=== PATIENT | male | born 1985 | race Caucasian/White ===

== ENCOUNTER → 2023-12-16 09:00 | Outpatient (BNV) | payer OTHER, SELFPAY | PROVIDERS: Visit Provider Psychiatry & Neurology Psychiatry | DX: F41.1 Generalized anxiety disorder (principal); F90.0 Attention-deficit hyperactivity disorder, predominantly inattentive type; F32.A Depression, unspecified; F12.90 Cannabis use, unspecified, uncomplicated; R41.840 Attention and concentration deficit | CPT/HCPCS: 90792; 99213 ==

== ENCOUNTER → 2023-12-18 14:44 | Outpatient (REF) | payer OTHER, SELFPAY ==
--- NOTE | 2023-12-18 14:50 | ECG_ITS ---
Test Reason : qtc check Blood Pressure : / mmHG Vent. Rate : 051 BPM Atrial Rate : 051 BPM P-R Int : 138 ms QRS Dur : 096 ms QT Int : 422 ms P-R-T Axes : 064 081 049 degrees QTc Int : 388 ms Sinus bradycardia Otherwise normal ECG No previous ECGs available Referred By: Kristie Stanton Electronically Signed By:DEMOND PALOMO MD
== END ==
LOC: HO.CARD 14:44
PROVIDERS: Visit Provider Psychiatry & Neurology Psychiatry
DX: F39 Unspecified mood [affective] disorder (principal)
CPT/HCPCS: 93005

== ENCOUNTER → 2023-12-18 14:50 | Outpatient (BNV) | payer OTHER, SELFPAY | PROVIDERS: Visit Provider Internal Medicine Cardiovascular Disease | DX: R00.1 Bradycardia, unspecified (principal) | CPT/HCPCS: 93010 ==

== ENCOUNTER 2023-12-29 10:00 | Outpatient (RCR) | payer OTHER, SELFPAY ==
[2023-12-16 11:41] VITALS: BP 144/91; PULSE 48; TEMP 36.9; BMI 21.9
--- NOTE | 2023-12-16 14:22 | PC.ADMIT ---
Patient is a 38 year old single male who was referred to [facility] by his psychiatrist Dr. Díaz. According to Dr. Díaz patient struggling with agitated depression with patient reports of significant insomnia, weight loss, irritability, anxiety, restlessness, and profound melancholia over the past several months. Reported severe low self esteem and is constantly comparing self to others. Patient currently on a medical leave from his job in [place]. Recently moved back home and is living with his mother d/t financial difficulties. Reports difficulty affording to live in his [place] apartment. 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 Feels he is stuck in his life and does not know how to move forward. Patient is alert and oriented x4. Calm and cooperative. Presented with depressed mood and irritable affect. Denied SI, no HI. He was given a copy of his safety plan if needed. Medications reconciled with patient and patient's pharmacy along with provider paperwork. Patient reports he is taking medications as prescribed. Patient reports he stopped doing the things he used to enjoy and was a competitive cyclist. Patient stated in college he used to complete with with his friends to see who could get the lowest pulse and would train harder to try to get his pulse the lowest. VS BP 144/91 P 48. He also stated hypertension runs in his family. Dr. Stanton is aware.
--- NOTE | 2023-12-16 23:51 | HO.PS.ADMBH ---
HPI Date of Service: 12/16/23 Chief Complaint: MDD,DAVID,ADHD Sources of Information: patient interviewed, chart reviewed and crisis/core team assessment reviewed HPI Narrative: Patient is a single, employed 38 yo male with history of job loss, difficulty maintaining employment who was referred by his provider who reports patient's struggles with insomnia, weight loss, irritability, restlessness, melancholia, low self esteem. Patient presents with dysphoria, mild irritability, and difficulty articulating his thoughts. It's hard to say and define (the reason he was referred to [facility]). I guess I fell off track . He states he was last doing okay 4 or 5 months ago, but my family would say I've always had issues . He reports a pattern of losing jobs either due to interpersonal clashes with supervisors, difficulties with staying organized or managing systems and other practical aspects keeping up with his job, or just the general discomfort with the malaise of the workplace. 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 He feels the cumulative weight of various perceived failures I see the old version of myself, before all the meds and drugs and says he feels dissatisfied with where his life is now and feels particularly frustrated by disappointment in himself. He relays issues with attention, focus, distractibility, executive dysfunction, organization, decision-making, procrastination, avoidant behaviors and memory deficits. He had been on an IEP/504 in school due to requiring more time on tests, also had OT for penmanship, but denies being aware of any developmental delays or childhood diagnoses for LD or ADHD. He reportedly underwent neuropsychological testing 2 years ago but had trouble conveying the findings from the testing. Prior to that he had been prescribed stimulant medication, but could not recall whether this was helpful but says it caused more anxiety. Says there are things he used to get into, like cooking. Even when he has had difficulties focusing, he would do better with hands on physical types of tasks and sports, biking. Now he says he is too lazy to do those things and says he generally avoids doing things and can be passive aggressive and easily frustrated by his shortcomings or even minimally demanding tasks (especially mental tasks). ..lately it is hard to give a s*%t . He endorses difficulty attending to our conversation, frequently yawning or getting up to get a tissue or throw something away. He notes that caffeine is wearing off and says he has a history of heavy caffeine use, but in recent months has been limiting the amount due to emerging problems with sleep since July or August. I used to sleep like a rock . Past Psychiatric History: Denies IPLOC, PHP, detox admissions Denies suicide attempts or SIBs Denies aggressive behavior Underwent neuropsych eval through [facility] in 2021 Therapist: had a therapist a year ago (from 2021 to early 2022) Psych provider: Nii Díaz MD Previous trials include Ritalin ([id number]), Adderall which he did not tolerate due to increase in anxiety, palpitations. Reports otherwise limited medication history due to resistance to medications or accepting treatment CURRENT MEDICATIONS sertraline 50 mg qd quetiapine 25 mg qhs lorazepam 0.5 mg BID prn anxiety atorvastatin 40 mg qd [facility] Medical History (Updated 12/23/23 @ 08:50 by Kristie Stanton MD) Hydrocele Hyperlipidemia Narrative: h/o HTN HLD s/p surgical repair of hydrocele, varicocele Denies seizures Denies concussions or head injury Family History: Mother was briefly treated on an antidepressant Father has had similar problems with employment, difficulty gaining and maintaining employment Social History: Unmarried, no children Lives at home with mom Substance History: Occasional cannabis use, social alcohol use in moderation nicotine use for a few years, quit 2022 h/o excessive caffeine use, in recent months very little Diagnostics Vital Signs (24Hr): Vital Signs - 24 hr 12/16/23 11:41 Temperature 98.4 F Pulse Rate 48 L Blood Pressure 144/91 H BMI result Body Mass Index 21.9 Meds/Allergies Meds Home Medications ?Medication ?Instructions ?Recorded ?Confirmed ?Type atorvastatin 40 mg tablet 40 mg PO DAILY 12/16/23 12/16/23 History lorazepam 0.5 mg tablet 0.5 mg PO BID PRN Anxiety 12/16/23 12/16/23 History quetiapine 25 mg tablet 25 mg PO BEDTIME 12/16/23 12/16/23 History sertraline 50 mg tablet (Zoloft) 50 mg PO DAILY 12/16/23 12/16/23 History Allergies Allergies Allergy/AdvReac Type Severity Reaction Status Date / Time No Known Allergies Allergy Verified 12/16/23 15:04 Mental Status Exam Mental Status Exam Narrative: Alert, oriented, in no acute distress. Calm, cooperative, semi-engaged, distracted. No psychomotor agitation or neurovegetative retardation. Eye contact maintained. Mood frustrated anxious, depressed, affect variable, irritable edge. Speech normal fragmented. Thought process thought blocking otherwise coherent, logical. Thought content related to stressors, denies any hopelessness or SI. Denies any aggressive ideation or HI. No paranoia or delusional content elicited. No evidence of psychosis. Insight and judgment - fair but adequate. Assessment & Plan Assessment & Plan (1) DAVID (generalized anxiety disorder): Status: Acute Code(s): F41.1 - Generalized anxiety disorder (2) ADHD (attention deficit hyperactivity disorder), inattentive type: Status: Acute Code(s): F90.0 - Attention-deficit hyperactivity disorder, predominantly inattentive type (3) Depressive disorder: Status: Acute Code(s): F32.A - Depression, unspecified (4) Cannabis use disorder: Status: Acute Code(s): F12.90 - Cannabis use, unspecified, uncomplicated Assessment and Plan: r/o cannabis-induced disorder (5) Cognitive attention deficit: Status: Acute Code(s): R41.840 - Attention and concentration deficit Assessment and Plan: r/o expressive language disorder or other cognitive disorder pt denies h/o head injury r/o sleep apnea Plan Admit to [facility] VS reviewed: abrefile, BP 144/91;?48 bpm Lab slip for routine fasting lab work and EKG, routine for AM tomorrow for baseline QTc for medication considerations start lisdexamfetamine 10 mg qam may start guanfacine ER 1 mg qd once EKG, lab work reviewed to target anxiety, mitigate side effects from stimulant If unable to tolerate due to bradycardia, will utilize lorazepam prn will continue other regular medications?for now consider switching to less cognitively blunting medication for sleep UDS as indicated [facility] reviewed Continue to monitor as per protocol Patient educated on: diagnosis, medication risk/benefits and substance abuse Informed Consent: understands Reason for continued partial hosp. stay Substantial Risk for: inability to function and med/psych decompensation Certification I certify that partial hospital treatment is medically necessary due to the symptoms and problems resulting from the patient's mental illness and the failure to treat the patient at the partial hospital level of care would likely result in the patient requiring inpatient psychiatric care which could not be prevented at a less intensive level of care. Time Spent With Patient Time: Total time managing care of this patient today _60___ minutes.
[2023-12-17 09:30] VITALS: BP 125/77; PULSE 51
--- NOTE | 2023-12-18 14:42 | HO.PHP ---
Client's case has been opened and reviewed in team.
--- NOTE | 2023-12-23 09:31 | P.PNPSP_ITS ---
Subjective Subjective Date of Service: 12/22/23 Reason For Visit: MDD,DAVID,ADHD Interim History: Patient seen for follow-up. Not the best. I havent really gotten anywhere. I havent started the meds at all He did receive a notification from [facility] that they are there but having difficulty making decisions in general. He does not have any specific concerns about starting the meds, although shares having spent a lot of time questioning if the medication will help him or not. He says he his anxiety is bad and it continues to be difficult to think or do anything, he is stuck in my head, I just cant figure out what to do. I try decide to do something, but then I just think myself out of it. I just dont know what I'm doing . He relays how difficult it is to process any information including his own thoughts and wishes, and indicates it causes him a lot of anxiety. Finally he adds I just got to do it. I cant keep living like this...getting stuck like this all the time . He did cut back some of his Seroquel and says he is sleeping well and feels less groggy and sedated. Denies his anxiety or mood is any worse. He denies any AH or VH and says he has no hsitory of paranoid or delusional thoughts or beliefs. When asked what he finds himself thinking about, he says he mostly ruminates on just where I'm at and where I havent really gotten to in life, and not having the thinkings I need, job, money, a life... I just get really pissed about it. Frustrated . Denies any SI thoughts or aggressive ideation or HI. Attending Groups: Yes Review of Systems Acute medical concerns: No Mental Status Exam Mental Status Exam Narrative: Alert, oriented, in no acute distress. Calm, cooperative, semi-engaged, dist racted. No psychomotor agitation or neurovegetative retardation. Eye contact maintained. Mood frustrated anxious, depressed, affect variable, irritable edge. Speech normal fragmented. Thought process thought blocking otherwise coherent, logical. Thought content related to stressors, denies any hopelessness or SI. Denies any aggressive ideation or HI. No paranoia or delusional content elicited. No evidence of psychosis. Insight and judgment - fair but adequate. Diagnostics Vital Signs (24Hr): BMI result Body Mass Index 21.9 Assessment & Plan Assessment & Plan (1) DAVID (generalized anxiety disorder): Status: Acute Code(s): F41.1 - Generalized anxiety disorder (2) ADHD (attention deficit hyperactivity disorder), inattentive type: Status: Acute Code(s): F90.0 - Attention-deficit hyperactivity disorder, predominantly inattentive type (3) Depressive disorder: Status: Acute Code(s): F32.A - Depression, unspecified (4) Cannabis use disorder: Status: Acute Code(s): F12.90 - Cannabis use, unspecified, uncomplicated Assessment and Plan: r/o cannabis-induced disorder (5) Cognitive attention deficit: Status: Acute Code(s): R41.840 - Attention and concentration deficit Assessment and Plan: r/o expressive language disorder or other cognitive disorder pt denies h/o head injury r/o sleep apnea Plan patient continues to be reluctant to start medication due to indecisiveness and difficulty internailzing information, negotiating pros/cons start lisdexamfetamine 10 mg qam may start guanfacine ER 1 mg qd once EKG, lab work reviewed to target anxiety, mitigate side effects from stimulant If unable to tolerate guanfacine due to bradycardia, will instead utilize lorazepam prn will continue other regular medications?for now consider switching to less cognitively blunting medication for sleep Patient educated on: diagnosis and medication risk/benefits Informed Consent: understands Reason for contiued partial hosp. stay Substantial Risk for: inability to function and med/psych decompensation Certification I certify that partial hospital treatment is medically necessary due to the symptoms and problems resulting from the patient's mental illness and the failure to treat the patient at the partial hospital level of care would likely result in the patient requiring inpatient psychiatric care which could not be prevented at a less intensive level of care. Total time managing care of this patient today __30__ minutes. Discharge Plan Discharge Attending provider: Kristie Stanton Medications: New lisdexamfetamine 10 mg capsule 10 mg PO QAM Qty: 30 0RF Rx Instructions: Partial Fill upon patient request. Continued atorvastatin 40 mg Tablet 40 mg PO DAILY sertraline [Zoloft] 50 mg Tablet 50 mg PO DAILY Changed guanfacine 1 mg tablet extended release 24 hr 1 mg PO DAILY Qty: 30 0RF Rx Instructions: for anxiety related to stimulant use (if HR>60) quetiapine 25 mg Tablet 12.5 - 25 mg PO BEDTIME PRN (Reason: sleep) Qty: 30 0RF lorazepam 0.5 mg Tablet 0.25 - 0.5 mg PO BID PRN (Reason: Anxiety) Qty: 20 0RF Stand Alone Forms: Patient Portal Discharge page Patient Education: Mood Disorders (DC), ADHD in Adults (DC), Depression (DC) Print Language: Korean
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
--- NOTE | 2023-12-29 13:31 | PC.NURSE ---
DC note from partial program, information provided and educated on current medications. Patient was seen by Dr Stanton today via telehealth. Patient states he has not started the Guanfacine and Lisdexamfetamine yet and was concerned about taking a stimulant. Education about side effects reviewed and patient to call PHP or contact psychiatric provider for any side effects to medications and/or additional concerns. Patient states he will think about it for now. SO paperwork provided to patient for review.
--- NOTE | 2023-12-29 20:55 | HO.PHPPROGNO ---
Subjective Subjective Date of Service: 12/29/23 Reason For Visit: MDD,DAVID,ADHD Interim History: Patient seen for follow-up, anticipating discharge at the end of program today.? He shares that he has been reflecting more about his cognitive and functional deficits negatively impacting his life, contributing to challenges with work, productivity, progress, sense of agency and competence. He says he is coming to terms with ADHD underlying his mental health struggles and says it is making more sense to him that starting treatment to target his cognitive issues. However he says he has a long history of being medication avoidant, generally tries to avoid taking medication, but says he is interested in starting Vyvanse and that it is just a matter of time, trying to get comfortable with the idea. Since he has not started on this , I have encouraged him to hold off starting until he meets with his upcoming provider appointment. He is aware guanfacine is only to be taken on a prn basis for now, if he experiences any overactivity, exacerbation in anxiety or palpitations (>60 bpm). Over time, if he tolerates Vyvanse and low HR improves, perhaps more regular dosing will be beneficial. Nonetheless he will discuss further with his provider. For now he continues on sertraline 50 mg, but says he is taking 1/2 tablet of quetiapine (not part of treatment plan) as he feels the need to take less medication. He says he is still able to sleep consistently. Otherwise reports no acute issues or concerns. Medication compliant, medications well-tolerated. Denies any adverse effects.? Mood is stable.? Denies any hopelessness or SI. Denies thoughts of harming self or others at this time. Denies any aggressive ideation or HI. Denies any paranoia or AH or VH. Sleep, appetite, energy stable. Medication Compliance: No Side effects from medications: No Attending Groups: Yes Review of Systems Acute medical concerns: No Mental Status Exam Mental Status Exam Narrative: Alert, oriented, in no acute distress. Calm, cooperative, semi-engaged, distracted. No psychomotor agitation or neurovegetative retardation. Eye contact maintained. Mood anxious, affect constricted. Speech normal. Thought process scattered, ruminative but otherwise coherent, logical. Thought content related to stressors, executive dysfunction, feeling less overwhelmed, more future-oriented, denies any hopelessness, SI or HI. No paranoia or delusional content elicited. No evidence of psychosis. Insight and judgment - fair but adequate.[facility] Vital Signs (24Hr): BMI result Body Mass Index 21.9 Assessment & Plan Assessment & Plan (1) DAVID (generalized anxiety disorder): Status: Acute Code(s): F41.1 - Generalized anxiety disorder (2) ADHD (attention deficit hyperactivity disorder), inattentive type: Status: Acute Code(s): F90.0 - Attention-deficit hyperactivity disorder, predominantly inattentive type (3) Depressive disorder: Status: Acute Code(s): F32.A - Depression, unspecified (4) Cannabis use disorder: Status: Acute Code(s): F12.90 - Cannabis use, unspecified, uncomplicated Assessment and Plan: r/o cannabis-induced disorder (5) Cognitive attention deficit: Status: Acute Code(s): R41.840 - Attention and concentration deficit Assessment and Plan: r/o expressive language disorder or other cognitive disorder pt denies h/o head injury r/o sleep apnea Plan Discharge from [facility] Patient did not start any new medications will hold off starting Vyvanse 10 mg until he meets with his new provider guanfacine may be used to experiences increased anxiety (baseline bradycardia, asymptomatic) otherwise he continues with his regular medications - sertraline 50 mg and quetiapine 25 mg (patient taking 12.5 mg qhs prn) will defer further medication management to outpatient provider *Safety plan reviewed *Discharge diagnoses, treatment course, discharge plan have been reviewed with patient (including medication regime, medication management, potential side effects) as well as treatment rationale were also revisited *Discharge paperwork signed and given to patient, copy sent for scanning to chart Patient educated on: diagnosis, medication risk/benefits and substance abuse Informed Consent: understands Reason for contiued partial hosp. stay Substantial Risk for: stable for discharge Certification I certify that partial hospital treatment is medically necessary due to the symptoms and problems resulting from the patient's mental illness and the failure to treat the patient at the partial hospital level of care would likely result in the patient requiring inpatient psychiatric care which could not be prevented at a less intensive level of care. Total time managing care of this patient today __30__ minutes. Discharge Plan Discharge Attending provider: Kristie Stanton Medications: New lisdexamfetamine 10 mg capsule 10 mg PO QAM Qty: 30 0RF Rx Instructions: Partial Fill upon patient request. Continued atorvastatin 40 mg Tablet 40 mg PO DAILY sertraline [Zoloft] 50 mg Tablet 50 mg PO DAILY Changed guanfacine 1 mg tablet extended release 24 hr 1 mg PO DAILY Qty: 30 0RF Rx Instructions: for anxiety related to stimulant use (if HR>60) quetiapine 25 mg Tablet 12.5 - 25 mg PO BEDTIME PRN (Reason: sleep) Qty: 30 0RF lorazepam 0.5 mg Tablet 0.25 - 0.5 mg PO BID PRN (Reason: Anxiety) Qty: 20 0RF Stand Alone Forms: Patient Portal Discharge page Patient Education: Mood Disorders (DC), ADHD in Adults (DC), Depression (DC) Print Language: Turkish
== END 2023-12-29 23:59 | disposition home or self-care (01) ==
LOC: HO.PHPA 10:00
PROVIDERS: Visit Provider Psychiatry & Neurology Psychiatry
DX: F41.1 Generalized anxiety disorder (principal); F90.0 Attention-deficit hyperactivity disorder, predominantly inattentive type; F32.A Depression, unspecified; F12.90 Cannabis use, unspecified, uncomplicated
CPT/HCPCS: 90853